=== PATIENT | male | born 1985 | race Two or more races ===

== ENCOUNTER → 2024-10-29 | Outpatient (CLI) | payer MEDICAID, SELFPAY ==
--- NOTE | 2024-10-29 14:15 | XR_ITS ---
Examination: Shoulder,left, 3 views Technique: Shoulder AP internal rotation, AP external rotation, Y view shoulder, 3 views Exam date and time :December 29, 2024 1431 hours INDICATIONS: Left shoulder pain beginning 5 years ago FINDINGS: Advanced osteoarthritis glenohumeral joint No shoulder fracture or dislocation No AC joint separation. IMPRESSION: Advanced osteoarthritis glenohumeral joint.
== END | disposition home or self-care (01) ==
LOC: CDIM 13:45
PROVIDERS: PCP Physician Assistant; Referring Provider Physician Assistant; Visit Provider Physician Assistant
DX: M19.012 Primary osteoarthritis, left shoulder (principal)
CPT/HCPCS: 73030